=== PATIENT | male | born 1985 | race Hispanic/Latino ===

== ENCOUNTER 2018-11-16 19:18 | Emergency (ER) | payer BC, SELFPAY ==
[2018-11-16 20:08] LABS: Bilirubin Negative (Negative); Blood, Urine Negative (Negative); Clarity CLOUDY (Clear); Glucose, Urine (Dipstick) Negative (Negative); Leukocyte Moderate (Negative); Nitrite Negative (Negative); Protein, Urine (Dipstick) Negative (Neg-Trace); Specific Gravity, Urine 1.025 (1.002-1.036); pH, Urine 6.5 (5.0-9.0)
[2018-11-16 20:11] LABS: Bacteria/HPF None Seen HPF (None Seen); Hyaline Casts/LPF 0-3 HYALINE CAST LPF (0-3 Hyaline); RBC/HPF 0-3 HPF (0-3); Squamous Epithelial None Seen HPF (0-3)
[2018-11-16] MEDS ORDERED: Azithromycin 250 MG TAB ONE (20:48)
[2018-11-16] MEDS ORDERED: Lidocaine 1% PF 5 ML VIAL ONE (20:48)
[2018-11-16] MEDS ORDERED: cefTRIAXone\\ROCEPHIN 250 MG VIAL ONE (20:48)
[2018-11-19 21:02] LABS: Chlamydia by PCR Not Detected (NotDetected); GC by PCR DETECTED (NotDetected)
== END 2018-11-16 21:11 | disposition home or self-care (01) ==
LOC: ERS 19:18
DX: N39.0 Urinary tract infection, site not specified (principal); F17.220 Nicotine dependence, chewing tobacco, uncomplicated
CPT/HCPCS: 81003; 81015; 87491; 87591; 96372; J0696; J2001